=== PATIENT | female | born 2000 | race Caucasian/White ===

== ENCOUNTER 2022-01-08 13:57 | Emergency (ER) | payer OTHER, MEDICAID, SELFPAY ==
[2022-01-08 14:05] VITALS: BP 119/66; PULSE 95; RESP 16; TEMP 37.1; O2SAT 97
--- NOTE | 2022-01-08 15:22 | W.ED.GENAD ---
Discharge Plan Disposition Patient Disposition: HOME Condition: Stable Discharge Details Clinical Impression: Vaginal bleeding Primary Care Provider: Cecilia,Local ED Provider: Ant Carver Home Meds and New Rx's Prescriptions: New tranexamic acid 650 mg tablet 1,300 mg PO BID 3 Days Qty: 12 0RF ibuprofen 400 mg tablet 400 mg PO Q8H 3 Days Qty: 9 0RF Discharge Instructions Instructions: Abnormal (Dysfunctional) Uterine Bleeding (ED) Additional Instructions: Please follow-up with [facility] within the next week. Please return the emergency department for any worsening symptoms. Consider having an outpatient ultrasound performed. Medical Decision Making 21-year-old female history of heavy menstrual bleeding, currently with Nexplanon implanted, last implanted 2 years ago, presents with heavy vaginal bleeding today has gone through approximately 4-5 pads in a 2-hour period, feels slightly lightheaded, no abdominal pain or vaginal discharge, no new sexual partners, no individual or family history of bleeding disorders, patient is nontoxic hemodynamically stable afebrile. Patient feels uncomfortable with pelvic examination at this time. Consider dysfunctional uterine bleeding in the setting of aging Nexplanon versus polyp or leiomyoma, less likely coagulopathy or malignancy or . Will obtain basic labs to assess hemoglobin, will assess urine and UA. Will start patient on tranexamic acid and ibuprofen and encourage close [facility] follow-up. Will arrange for outpatient pelvic ultrasound. 17: 36 patient resting comfortably no acute distress hemodynamically stable. No signs of anemia. Patient will follow-up with [facility] as an outpatient. Have offered follow-up tomorrow morning for pelvic ultrasound however patient endorses that she is very busy with her work schedule and will likely not be able to attend. Have encouraged her to follow-up as an outpatient after seeing [facility] for further imaging if needed and return to the emergency department for any worsening symptoms. HPI General Date/Time Provider Initiated Documentation: 01/08/22 14:10. HPI Narrative: 21-year-old female history of heavy menstrual bleeding, currently has Nexplanon implanted, last implanted 2 years ago, presents with heavy vaginal bleeding today. [place] slightly lightheaded. Has used approximately 4-5 tampons in a 2 to 4-hour period; does not follow consistently with [facility]. Last episode of heavy menstrual bleeding was approximately 2 years ago. Denies new sexual partner. Denies vaginal discharge. Related Data Home Medications Medication Instructions Recorded Confirmed ibuprofen 400 mg tablet 400 mg PO Q8H 3 days #9 tabs 01/08/22 tranexamic acid 650 mg tablet 1,300 mg PO BID 3 days #12 tabs 01/08/22 Previous Rx's Medication Instructions Recorded ibuprofen 400 mg tablet 400 mg PO Q8H 3 days #9 tabs 01/08/22 tranexamic acid 650 mg tablet 1,300 mg PO BID 3 days #12 tabs 01/08/22 Allergies Allergy/AdvReac Type Severity Reaction Status Date / Time No Known Allergies Allergy Unverified 01/08/22 14:11 General Stated Complaint: [facility] MAURICIO: 3 Review of Systems Narrative: Review of Systems Constitutional: negative Eyes: negative ENT: negative Cardiovascular: negative Respiratory: negative Gastrointestinal: negative : Vaginal bleeding Musculoskeletal: negative Skin: negative Neurologic: negative Psych: negative PFSH All Active Problems (Updated 01/08/22 @ 17:37 by Ant Carver MD) Vaginal bleeding (Acute) Social History Smoking/Tobacco Use Status: Never Smoking risk assessment performed?: Yes Alcohol Intake: never Drug use: Never Substance use type: does not use Do you feel safe at home: Yes Do you feel safe in your relationship?: Yes Exam Narrative Exam Narrative: Physical Examination General: alert, awake, cooperative, resting comfortably, no acute distress HEENT: normocephalic, atraumatic; PERRL, EOM intact, conjunctiva normal; no nasal discharge; moist mucous membranes, oral and pharyngeal mucosa normal, tolerating secretions Neck: supple, trachea midline; full ROM Chest: normal to inspection Respiratory: normal respiratory effort, speaking in full sentences, clear to auscultation, no wheezing, rales or rhonchi Cardiac: regular rate, regular rhythm, S1S2 intact, no murmurs rubs or gallops GI: abdomen soft, non-tender, non-distended; no palpable mass or hepatosplenomegaly Skin: no lesions, rashes or trauma appreciated Neuro: AAOx3, normal speech, moving all extremities Psych: Appropriate mood and affect Course Vital Signs Vital signs: Vital Signs Temperature 37.1 C 01/08/22 14:05 Pulse 95 H 01/08/22 14:05 Respiratory Rate 16 01/08/22 14:05 Blood Pressure 119/66 01/08/22 14:05 Pulse Oximetry 97 01/08/22 14:05 Temperature 37.1 C 01/08/22 14:05 Temperature Source Temporal Artery Scan 01/08/22 14:05 Pulse 95 H 01/08/22 14:05 Respiratory Rate 16 01/08/22 14:05 Respiratory Effort Non-Labored 01/08/22 14:07 Blood Pressure 119/66 01/08/22 14:05 Blood Pressure Position Sitting 01/08/22 14:05 Pulse Oximetry 97 01/08/22 14:05 Oxygen Delivery Method Room Air 01/08/22 14:05 Oxygen Flow Rate 0 01/08/22 14:05 Pain Level 7 01/08/22 14:07 Lab/Test Results Lab/Test Results: POC- Test(urine) Negative
[2022-01-08] MEDS: Ibuprofen 400 MG TAB PO (15:39)
[2022-01-08] MEDS: Tranexamic Acid 650 MG TAB 1300 MG PO (15:40)
[2022-01-08 15:45] LABS: *AMPHETAMINES SCREEN URINE Negative (Negative); *BARBITURATES SCREEN URINE Negative (Negative); *BENZODIAZEPINES SCREEN URINE Negative (Negative); Cannabinoids THC Negative (Negative); Cocaine Screen,Urine Negative (Negative); METHADONE URINE SCREEN Negative (Negative); OPIATES URINE SCREEN Negative (Negative)
[2022-01-08 15:56] LABS: Abs Immature Grans 0.02 10^3/uL (0.0-0.06); Absolute Basophil Count 0.07 10^3/uL (0.0-0.2); Absolute Eosinophil Count 0.12 10^3/uL (0.0-0.7); Absolute Monocyte Count 0.51 10^3/uL (0.1-0.8); Absolute Neutrophil Count 3.95 10^3/uL (1.2-6.7); Basophils % 1.1; Eosinophils % 1.8; HCT 39.7 % (36.0-46.0); HGB 13.7 g/dL (11.2-15.7); Immature Grans % 0.3; Lymphocytes % 28.9; MCH 32.1 pg (27.0-33.0); MCHC 34.5 % (32.0-36.0); MCV 93 fL (80-95); MPV 10.5 fL (8.0-11.0); Monocytes % 7.8; Neutrophils % 60.1; Platelet Count 260 10^3/uL (130-400); RBC 4.27 10^6/uL (3.93-5.22); RDW 12.2 % (11.7-14.6); RDW-SD 41.7 fL; WBC 6.57 10^3/uL (4.4-10.8)
[2022-01-08 16:04] LABS: PTT Activated 24.8 sec (21.0-27.5)
[2022-01-08 16:12] LABS: ALT 24 U/L (14-59); AST 21 U/L (15-37); Albumin 3.9 g/dL (3.4-5.0); Alkaline Phosphatase 60 U/L (46-116); Anion Gap 8.6 mmol/L (3-11); BUN 17 mg/dL (7-18); Bilirubin, Total 0.3 mg/dL (0.2-1.0); CO2 27.4 mmol/L (21.0-32.0); Calcium 8.9 mg/dL (8.5-10.1); Chloride 107 mmol/L (98-107); Glucose 103 mg/dL (74-106); Sodium 143 mmol/L (136-145); Total Protein 7.2 g/dL (6.4-8.2)
--- NOTE | 2022-01-08 16:14 | PDOC.ERCMPRO ---
- If Service Date Differs Date of service: 01/08/22 Time of Service: 16:14 Care Management Progress Note SBIRT screen negative. Pt reports no substance use or mental health symptoms.
[2022-01-08 16:16] LABS: Tricyclic Antidepressants Negative (Negative)
[2022-01-08 17:03] LABS: Bilirubin Negative (Negative); Blood Small (Negative); Clarity Cloudy (Clear); Glucose Negative (Negative); Ketones Negative (Negative); Leukocyte Esterase Negative (Negative); Nitrite Negative (Negative); Specific Gravity >= 1.030 (1.005-1.025); Urobilinogen 0.2 EU/dL (Up TO 0.2); pH 6.5 (5-8)
[2022-01-08 17:20] LABS: Bacteria Rare HPF (Negative); C & S Indicated? No; Crystals Many Amorphous HPF (Negative); Epithelial Cells Few HPF (Negative); Mucus Moderate (Negative); RBC 0-2 HPF (0-2); WBC 0-2 HPF (0-5)
--- NOTE | 2022-01-08 17:42 | NUR.NOTE ---
Referral faxed to [facility] for vaginal bleeding within [address] [place], put the referral in the career development consultant's box for f/u.Nursing Note:
[2022-01-08 17:50] VITALS: BP 117/63; PULSE 89; RESP 18; O2SAT 98
== END 2022-01-08 17:56 | disposition home or self-care (01) ==
PROVIDERS: Emergency Provider Emergency Medicine
DX: N93.9 Abnormal uterine and vaginal bleeding, unspecified (principal); Z97.5 Presence of (intrauterine) contraceptive device
CPT/HCPCS: 80053; 80307; 81025; 99283; 81003; 81015; 85025; 85610; 85730; 99284

== ENCOUNTER 2022-01-15 11:38 | Outpatient (REF) | payer OTHER, MEDICAID, SELFPAY ==
[2022-01-16 21:29] LABS: Chlamydia Result Negative (Negative); GC Result Negative (Negative)
== END 2022-01-15 11:39 | disposition home or self-care (01) ==
LOC: LBN 11:38
PROVIDERS: Visit Provider Obstetrics & Gynecology
DX: Z11.3 Encounter for screening for infections with a predominantly sexual mode of transmission (principal)
CPT/HCPCS: 87491; 87591